=== PATIENT | female | born 1980 | race African-American/Black ===

== ENCOUNTER 2021-10-06 02:31 | Emergency (ER) | payer MEDICAID ==
[~2021-10-06] VITALS: Ht 160 cm; Wt 156.0 kg
[~2021-10-06 02:31] MED LIST: ALBU6.7H9 INH; ZOLPIDEM TARTRATE
[2021-10-06] MEDS ORDERED: METHYLPREDNISOLONE SOD SUCC 125 MG/2 ML VIAL IV STA (02:46)
[2021-10-06] MEDS ORDERED: MAGNESIUM 2 G PREMIX 50 ML IV STA (02:46)
[2021-10-06] MEDS ORDERED: IPRATROPIUM BROMIDE (0.02%) 0.5MG/2.5ML NEB HHN STA (02:46)
[2021-10-06] MEDS ORDERED: ALBUTEROL (0.083%) 2.5MG/3ML NEB HHN STA (02:46)
[2021-10-06] MEDS ORDERED: P20 MT (04:34)
[2021-10-06 05:30] VITALS: BP 123/66
== END 2021-10-06 05:40 | disposition home or self-care (01) ==
LOC: ER 02:31
DX: J45.901 Unspecified asthma with (acute) exacerbation (principal); Z20.822 Contact with and (suspected) exposure to COVID-19; Z91.013 Allergy to seafood; Z88.0 Allergy status to penicillin
CPT/HCPCS: 71045; 87426; 93005; 96365; 96375; 99285; C9803; J2930; J3475; Z7610

== ENCOUNTER 2021-10-17 03:34 | Emergency (ER) | payer MEDICAID ==
[~2021-10-17] VITALS: Ht 157.5 cm; Wt 164.2 kg
[~2021-10-17 03:34] MED LIST changes: +P20 MT
[2021-10-17 03:41] VITALS: BP 123/77
[2021-10-17] MEDS ORDERED: PREDNISONE 20MG TABLET PO STA (04:24)
[2021-10-17] MEDS ORDERED: ALBUTEROL (0.083%) 2.5MG/3ML NEB HHN STA (04:24)
[2021-10-17] MEDS ORDERED: IPRATROPIUM BROMIDE (0.02%) 0.5MG/2.5ML NEB HHN STA (04:24)
== END 2021-10-17 06:23 | disposition home or self-care (01) ==
LOC: ER 03:34
DX: J45.901 Unspecified asthma with (acute) exacerbation (principal); R05.9 Cough, unspecified; I51.7 Cardiomegaly; Z88.0 Allergy status to penicillin; Z91.013 Allergy to seafood
CPT/HCPCS: 93005; 99283

== ENCOUNTER 2023-02-18 01:44 | Emergency (ER) | payer MEDICAID, OTHER ==
[~2023-02-18] VITALS: Ht 157.5 cm; Wt 137.0 kg
[~2023-02-18 01:44] MED LIST changes: +ALBU6.7H3 INH; -ALBU6.7H9 INH
[2023-02-18 01:49] VITALS: BP 120/71
[2023-02-18] MEDS ORDERED: ACETAMINOPHEN 325MG TABLET PO STA (01:51)
[2023-02-18] MEDS ORDERED: ALBUTEROL (0.083%) 2.5MG/3ML NEB HHN STA (01:51)
[2023-02-18] MEDS ORDERED: IPRATROPIUM BROMIDE (0.02%) 0.5MG/2.5ML NEB HHN STA (01:51)
[2023-02-18] MEDS ORDERED: SODIUM CHLORIDE 0.9% 1,000 ML IV ONE (02:00)
[2023-02-18 02:29] LABS: BASOPHILS % 0.3 % (0.0-2.0); EOSINOPHILS % 1.3 % (0.0-5.0); HEMATOCRIT. 37.6 % (36.0-48.0); HEMOGLOBIN. 12.3 g/dL (12.0-16.0); LYMPHOCYTES % 11.2 % (20.0-50.0); MEAN CORPUSCULAR HEMOGLOBIN 29.8 pg (28.0-32.0); MEAN CORPUSCULAR HGB CONC 32.8 g/dL (31.0-37.0); MEAN PLATELET VOLUME 6.7 fl (7.4-10.4); MONOCYTES % 4.6 % (2.0-8.0); NEUTROPHILS % 82.6 % (40.0-76.0); PLATELET 336 x1000/uL (130-400); RED BLOOD CELL COUNT 4.13 mill/uL (4.2-5.4); RED CELL DISTRIBUTION WIDTH 14.7 % (11.6-14.6); WHITE BLOOD COUNT 7.5 x1000/uL (4.5-11.0)
[2023-02-18 02:45] LABS: ALANINE AMINOTRANSFERASE 22 IU/L (10-49); ALBUMIN 3.7 g/dL (3.2-4.8); ASPARTATE AMINOTRANSFERASE 25 IU/L (<34); BILIRUBIN TOTAL 0.4 mg/dL (0.1-1.0); CALCIUM 8.4 mg/dL (8.7-10.4); CARBON DIOXIDE 29 mEq/L (21-32); CHLORIDE 106 mEq/L (98-107); CREATININE 0.7 mg/dL (0.6-1.0); GLUCOSE 118 mg/dL (70-105); POTASSIUM 3.9 mEq/L (3.5-5.1); PROTEIN TOTAL 6.1 g/dL (6.0-8.3); SODIUM 140 mEq/L (136-145); UREA NITROGEN BLOOD 9 mg/dL (9-23)
[2023-02-18 02:58] LABS: ETHANOL BLOOD < 10 mg/dL (<10); TROPONIN I HIGH SENSITIVITY < 4 ng/L (3.0-34)
[2023-02-18 03:10] LABS: HCG SCREEN NEGATIVE
[2023-02-18] MEDS ORDERED: IPRATROPIUM BROMIDE (0.02%) 0.5MG/2.5ML NEB HHN NR (05:00)
[2023-02-18] MEDS ORDERED: ALBUTEROL (0.083%) 2.5MG/3ML NEB HHN NR (05:00)
[2023-02-18] MEDS ORDERED: ACETAMINOPHEN 325MG TABLET PO NR (05:00)
[2023-02-18] MEDS ORDERED: ALBU6.7H15 INH (05:25)
[2023-02-18] MEDS ORDERED: ACET-2708 MT (05:25)
[2023-02-18] MEDS ORDERED: GUAI600T26 MT (05:25)
[2023-02-18 06:47] VITALS: PULSE 96; RESP 20; O2SAT 97
[2023-02-18 07:06] VITALS: PULSE 75; RESP 18; TEMP 101.1
[2023-02-18 07:38] LABS: *AMPHETAMINES SCREEN URINE NEGATIVE (NEGATIVE); *BARBITURATES SCREEN URINE NEGATIVE (NEGATIVE); *BENZODIAZEPINES SCREEN URINE NEGATIVE (NEGATIVE); *COCAINE SCREEN URINE NEGATIVE (NEGATIVE); CANNABINOID URINE SCREEN NEGATIVE (NEGATIVE); ECSTASY MDMA SCREEN URINE NEGATIVE (NEGATIVE); METHADONE URINE SCREEN Neg (NEGATIVE); OPIATES URINE SCREEN NEGATIVE (NEGATIVE); PHENCYCLIDINE URINE SCREEN PRESUMTIVE POSITIVE (NEGATIVE)
== END 2023-02-18 07:06 | disposition home or self-care (01) ==
LOC: ER 01:59
DX: B34.9 Viral infection, unspecified (principal); J40 Bronchitis, not specified as acute or chronic; Z88.0 Allergy status to penicillin; Z91.013 Allergy to seafood; Z20.822 Contact with and (suspected) exposure to COVID-19
CPT/HCPCS: 94640; 80053; 80305; 81025; 80320; 84703; 83880; 83605; 83690; 85025; 87040; 84484; 87804 ×2; 36415; 71045; 93005; 99285; 87426; Z7610 ×4; J7030; C9803; G0480